=== PATIENT | male | born 1995 | race African-American/Black ===

== ENCOUNTER 2016-10-31 12:12 | Emergency (ER) | payer SELFPAY ==
--- NOTE | 2016-10-31 12:54 | ED Physician Documentation ---
Upper Extremity Injury - HISTORIAN Historian: patient - HPI Stated Complaint: Numbness to Left Arm Chief Complaint: Upper Extremity Injury Additional Information: pt awoke set up stretyched both arms high above head like early am stretch felt pop and pain rt shoulder and axxilla with progressive worsening. pts job requires frequent heavy lifting to above head-probably contributing to the early injury to brachial plexus and shoulder. now he has dec use and sensation to rt upper ext. Onset: days ago (4) Where: home Severity: moderate Duration: worse Associated Symptoms: tingling, numbness distally, feeling loss, loss of power to arms Modifying Factors: pain on movement - ROS CONST: no problems CVS/RESP: none NEURO: other (probable brachial plexus stretch) MS/SKIN/LYMPH: neck pain. denies: back pain GI/: denies: nausea, vomiting - PAST HX Past History: Rt handed Allergies/Adverse Reactions: Allergies Allergy/AdvReac Type Severity Reaction Status Date / Time No Known Allergies Allergy Unverified 10/31/16 12:18 Home Medications: Ambulatory Orders Medication Instructions Recorded NK [NK] 10/31/16 - SOCIAL HX Smoking History: greater than 1 pack/day Alcohol Use: occasionally Drug Use: marijuana - FAMILY HX Family History: no significant history - VITAL SIGNS Vital Signs: Vital Signs Temp Pulse Resp BP Pulse Ox 97 F L 70 16 133/77 99 10/31/16 12:12 10/31/16 12:12 10/31/16 12:12 10/31/16 12:12 10/31/16 12:12 - REVIEWED ASSESSMENTS Nursing Assessment Reviewed: Yes Vitals Reviewed: Yes ED Results Lab/Radiology - Orders Orders: ED Orders Category Date Time Status Sling to Affected Extremity 1T Care 10/31/16 12:49 Ordered Upper Extremity Injury Physic - Physical Exam General Appearance: mild distress, moderate distress Hand: normal inspection, non-tender (decreased sensatioon and power-can move all of the extremity but much less power w/sensory partial loss) Elbow/Forearm: normal inspection (but as above) Shoulder: normal inspection (but ass above) Neuro/Vascular/Tendon: no vascular compromise, motor nml, sensation nml (motor and sensory ok but as above--feel will lresolve w/o permanent loss) Skin: warm,dry. No: diaphoretic, cool, cyanotic, decubitus Head/ENT: nml inspection. No: swelling, ecchymosis Resp/CVS: heart sounds nml, no resp. distress, lungs clear, reg. rate & rhythm. No: tenderness Abdomen: non-tender Discharge Clincal Impression: lt shoulder sprain, brachial plexus stretch Referrals: Primary Doctor,No [Primary Care Provider] - 2 Days Home Medications: Ambulatory Orders NK [NK] 10/31/16 Comments: suspect total recovery but needs rest and avoid heavy usage Condition: Good Disposition: 01 HOME, SELF-CARE Decision to Admit: NO Decision Time: 13:00
[2016-10-31 12:59] VITALS: BP 120/58
== END 2016-10-31 12:58 | disposition home or self-care (01) ==
LOC: ED 12:12
DX: S43.402A Unspecified sprain of left shoulder joint, initial encounter (principal); S14.3XXA Injury of brachial plexus, initial encounter; X58.XXXA Exposure to other specified factors, initial encounter; Y93.9 Activity, unspecified; Y99.9 Unspecified external cause status
CPT/HCPCS: 99283